=== PATIENT | female | born 1975 | race Two or more races ===

== ENCOUNTER 2024-10-16 12:00 | Day surgery (SDC) | payer MEDICAID, SELFPAY ==
[2024-10-14 13:33] LABS: Basophils % (Auto) 0 % (0-2.5); Eosinophils # (Auto) 0.1 Thou/mm3 (0.0-0.5); Eosinophils % (Auto) 1 % (0-10); Hematocrit 39.3 % (36.0-46.0); Hemoglobin 12.9 g/dL (12.0-16.0); Immature Granulocytes % (Auto) 0 % (0-0); Immature Granulocytes Auto 0.02 Thou/mm3 (0.00-0.00); Lymphocytes # (Auto) 2.5 Thou/mm3 (1.0-4.8); Lymphocytes % (Auto) 35 % (10-50); Mean Corpuscular HGB Conc 32.8 g/dl (31.0-37.0); Mean Corpuscular Volume 85 fL (80-100); Monocytes # (Auto) 0.5 Thou/mm3 (0.0-0.8); Monocytes % (Auto) 7 % (0-12); Neutrophils % (Auto) 57 % (37-80); Nucleated Red Blood Cell % 0 /100 WBC (0); Platelet Count 253 Thou/mm3 (140-440); RDW Standard Deviation 44.3 fL (36.4-46.3); Red Blood Count 4.61 Miln/mm3 (4.00-5.20)
[2024-10-14 13:41] LABS: Alanine Aminotransferase 15 U/L (10-49); Albumin, Serum 4.3 gm/dL (3.5-5.0); Albumin/Globulin Ratio 1.5 (1.2-2.2); Alkaline Phosphatase 88 U/L (46-116); Anion Gap 9 (7-16); Aspartate Amino Transferase 17 U/L (0-34); BUN/Creatinine Ratio 22 Ratio (12-20); Bilirubin,Total 0.5 mg/dL (0.3-1.2); Blood Urea Nitrogen 13 mg/dL (9-23); Calcium 9.5 mg/dL (8.3-10.6); Calcium (Corrected) 9.5 mg/dL (8.5-10.1); Carbon Dioxide 25.2 mMol/L (20.0-31.0); Chloride 105 mMol/L (98-107); Creatinine (Component) 0.6 mg/dL (0.6-1.3); Globulin 2.9 gm/dL (2.3-3.5); Glucose 90 mg/dL (74-106); Osmolality,Calculated 277 (275-295); Potassium 3.4 mMol/L (3.4-5.1); Sodium 139 mMol/L (136-145); Total Protein 7.2 gm/dL (5.7-8.2); eGFR > 60 See Note
[2024-10-14 13:42] LABS: Partial Thromboplastin Time 27.6 Seconds (22.0-36.0); Prothrombin Time 10.9 Seconds (9.0-12.2)
[2024-10-14 13:59] LABS: HCG Qualitative,Urine Negative
[2024-10-15 11:12] VITALS: BMI 34.0
[2024-10-16 13:01] VITALS: BP 143/84; PULSE 69; RESP 14; TEMP 36.1; O2SAT 99; BMI 35.9
[2024-10-16] MEDS: SODIUM CHLORIDE 0.9% 500 ML 500 ML 20 ML IV (13:39)
[2024-10-16 14:05] VITALS: BP 116/77; PULSE 94; RESP 15; TEMP 37.1; O2SAT 94
[2024-10-16 14:15] VITALS: BP 122/87; PULSE 79; RESP 20; O2SAT 95
[2024-10-16 14:25] VITALS: BP 131/85; PULSE 78; RESP 19; O2SAT 98
[2024-10-16 14:35] VITALS: BP 133/81; PULSE 71; RESP 16; O2SAT 99
== END 2024-10-16 15:05 | disposition home or self-care (01) ==
PROVIDERS: PCP Physician Assistant; Referring Provider Surgery; Visit Provider Surgery
PROC: 0DBE8ZX Excision of Large Intestine, Via Natural or Artificial Opening Endoscopic, Diagnostic (ICD-10-PCS; CPT 45380; principal; 2024-10-16 13:00)
DX: Z12.11 Encounter for screening for malignant neoplasm of colon (principal)
CPT/HCPCS: 45378; 36415; 80053; 81025; 85025; 85610; 85730; A4217; J7040

== ENCOUNTER → 2025-07-30 | Outpatient (CLI) | payer MEDICAID, SELFPAY ==
--- NOTE | 2025-07-30 15:00 | XR_ITS ---
Examination: Abdomen sonogram, complete Date and time of exam: July 30, 2025 1510 hours INDICATIONS: Right upper abdominal pain nausea vomiting 6 months. Technique: Multiple real-time grayscale transabdominal sonographic images of the abdomen have been obtained. Findings: 3 mm gallbladder polyp Negative for cholelithiasis, normal gallbladder wall Normal common bile duct 0.2 cm Pancreatic head 2.5 cm Aorta not enlarged. Liver 13.3 cm fatty infiltration Normal hepatopedal portal venous flow Patent IVC Right kidney 9.9 cm cortex 1.4 cm Left kidney 10.6 cm cortex 1.6 cm Mild renal scar formation Spleen 8.5 cm IMPRESSION: 3 mm gallbladder polyp, negative for cholelithiasis, negative for cholecystitis Liver normal size fatty infiltration
== END | disposition home or self-care (01) ==
LOC: CDIM 14:59
PROVIDERS: PCP Physician Assistant; Referring Provider Physician Assistant; Visit Provider Physician Assistant
DX: K82.4 Cholesterolosis of gallbladder (principal); K76.0 Fatty (change of) liver, not elsewhere classified
CPT/HCPCS: 76700